=== PATIENT | male | born 1940 | race Caucasian/White ===

== ENCOUNTER 2016-06-08 21:45 | Inpatient (IN) | payer MEDICARE ==
[~2016-06-08] VITALS: Ht 172.7 cm; Wt 84.0 kg
--- NOTE | ~2016-06-08 | HP ---
ADMIT: 06/08/2016 RM/LOC: 311 [facility] MR#: [id number] [address] [address] TAMIKA MARIA V [address] [place] [address] History and Physical SEX: M AGE: 76 : 1940 DATE OF SERVICE: REASON FOR ADMISSION: Fall downstairs, unwitnessed. HISTORY OF PRESENT ILLNESS: This patient is a 76-year-old male, who had an unwitnessed fall down some stairs. Sounds like in visit with paramedics, they found him kind of inverted at the bottom of the stairs with his head down, gurgling. Do not know how long he had been there, how many stairs he had fell down, brought him in, he was unresponsive, bleeding from his mouth, nose. They tried to intubate him, unable to get that done in the field. When he got here, he was intubated by our ER physician. At that time frame then, he coded. CPR was done for 2-3 minutes. Did get one dose of epi. We got a pulse back and since that time has had a tachy, but sinus versus paced rhythm at times. He had a blood pressures that responded adequately. Obvious trauma to his head. No other obvious long bone trauma noted on him. He is completely unresponsive, taken over the CT scanner for CT of the head, chest, C-spine, abdomen and pelvis that shows a depressed skull fracture with significant subarachnoid intraparenchymal areas of blood. No current shift. I do not have final reading, but initial look and read, looking that with the radiologist, no obvious C-spine fracture, there is left clavicle fracture, significant emphysema stuff in the base of his lungs, most likely some aspiration-type stuff from tonight. The rest of his solid organs all appeared okay and no other fluid in his abdomen. I do not have any other significant history on him at this time. He does have a pacer, so obviously some type of heart-type issues and problems. Looks like he has had a total joint on the right. No other history currently is known on him, and he is unresponsive. PHYSICAL EXAMINATION: HEENT: Pupils currently both fixed and dilated. He did get medicines in the field for intubation. Significant bruising around both eyes and left ear. Deformity on the left side of the skull. No significant active bleeding currently. We rolled him back, did not show any obvious step-offs or significant trauma there. CHEST: Coarse bilaterally, anteriorly. ADMIT: 06/08/2016 RM/LOC: 311 [facility] MR#: [id number] [address] [place] [id number] [facility] [address] [place] [address] History and Physical SEX: M AGE: 76 : 1940 HEART: Tachy. ABDOMEN: Soft, nondistended. No obvious mass or lesion. PELVIS: Stable. EXTREMITIES: Like I said, he is currently not been responsive, not moved any of his extremities to pain or anything at this time. NEUROLOGIC: GCS of 3. ASSESSMENT AND PLAN: At this time, I have ER, who is getting hold of Dr. Reyna of neurosurgery to see what he thinks with this overall head trauma that is what appears to be somewhat isolated fall and significant life- threatening head trauma at this point. We will consult Pulmonary to help with vent management, see what Dr. Reyna thinks and wants to do. Currently, no general surgical issues or problems. Bradley Durham MD/ susan JOB #: [id number] CC: Bradley Durham, Attending Physician Ty Mayfield, Family Physician
[~2016-06-08 21:45] MED LIST: ASA CHILDREN'S81 MG PO; CRESTOR20 MG PO; DULCOLAX-DPS5 MG PO; FEOSOL-DPS325 MG PO; GLUCOPHAGE-DPS500 MG PO; LANTUS100 UNITS/ SQ; LEXAPRO DPS10 MG PO; NITROSTAT0.4 MG SL; NORVASC5 MG PO; OMEGA-3 DPS1000 MG PO; OXY IR DPS5 MG PO; PLAVIX75 MG PO; PLETAL100 MG PO; PRILOSEC DPS20 MG PO; SENOKOT S1 TAB PO; TENORMIN DPS50 MG PO; THERA1 EACH PO; TRICOR145 MG PO; TYLENOL DPS325 MG PO; ULTRAM DPS50 MG PO; XARELTO10 MG PO; ZESTRIL DPS20 MG PO; ZETIA10 MG PO
--- NOTE | 2016-06-09 06:52 | ER ---
ADMIT: 06/08/2016 RM/LOC: 311 [facility] MR#: [id number] [address] [address] TAMIKA MARIA V [address] [place] [address] Emergency Room Report SEX: M AGE: 76 : 1940 DATE: 06/08/2016 The patient is a 76-year-old male, came here with a chief complaint of altered mental status. The patient allegedly per partner, he was drinking alcohol and the partner did not witness an incident, but she heard the sound and when she got there, the patient was on the back of the head on the cement floor. It looks like he fell from 6 steps hitting the back of the head on the 7th floor. Per partner, the patient was talking and ambulating without difficulty before that, but when the EMS got there after the incident, the patient was unresponsive and en route, they tried to intubate the patient which was not successful. In the ER, the patient was intubated, and followup exam and also chest x-ray showed the tube is in the right place. In the ER, the patient lost pulses, had cardiac arrest and after 1 round of epinephrine and cardiac massage, he had ROSC. Further examination showed the patient had pupil of 3 mm bilaterally, nonreactive to light and sphincters were normal, knowing that the patient has been given RSI meds en route, but not in the ER. The patient did not move any extremities in the ER, and the eyes were closed and did not talk and did not follow commands and did not move any extremities. A GCS in the ER in the 1st place was 3. The patient had some signs of trauma to the head. There is some bruising in the periorbital area bilaterally, mostly on the left. There is some contusion and some fresh blood in the right scalp in the frontal and right parietal area. There is some contusion and some minor scalp laceration, some bleeding on the left occipital area. There is some blood at the left ear canal, chest bilateral breath sounds with bagging, and normal cardiac sounds and the belly was not distended and the pelvic looks stable. There is no step-offs in the spine, and there is no obvious deformity in the spine. Followup chest x-ray showed the tube is in the right place, and followup CT of the head and neck was suggestive of diffuse subarachnoid hemorrhage, right skull fracture in the right parietal bone, brain contusion without any midline shift and without any epidural hematoma. This was a trauma activation and General Surgery admitted the patient. Neurosurgery was consulted. The patient was allegedly on aspirin and Plavix. In the physical exam, had a pacemaker and EKG also had the pacer, wave captured the ventricles. The patient was admitted by General Surgery with a followup with Neurosurgery on board for traumatic brain injury, subarachnoid hemorrhage, skull fracture, altered mental status. Followup CT angiogram of the head did not show any aneurysm. Critical care time, 90 minutes. Rachid Fuentes MD/ susan JOB #: [id number] CC: Bradley Durham MD, Attending Physician Ty Mayfield MD, Family Physician
--- NOTE | 2016-06-11 13:52 | CO ---
ADMIT: 06/08/2016 RM/LOC: 311 [facility] MR#: [id number] [address] [address] TAMIKA MARIA V [address] [place] [address] Consultation SEX: M AGE: 76 : 1940 DATE OF CONSULTATION: 06/10/2016 ATTENDING PHYSICIAN: Bradley Durham CONSULTING PHYSICIAN: Aracely Robles APRN TIME IN: 11:45 am. TIME OUT: 1305. REASON FOR CONSULTATION: Supportive Care consultation was requested by Dr. Gerber for discussion of goals for care. HISTORY OF PRESENT ILLNESS: Mr. Maria is a 76-year-old male, who unfortunately sustained an unwitnessed fall at his home. He does have a history of coronary artery disease and was on Plavix and aspirin. He was found at the bottom of the stairs of his home, unresponsive. EMS was called and they did attempt intubation in the field, however, they were unable to get him intubated and he was ultimately able to be intubated in the emergency room. He then cardiac coded for approximately 2-3 minutes with compressions and defibrillation. CT scan showed a diffuse subarachnoid hemorrhage with depressed skull fracture. Neurosurgery has been following him as has Pulmonary. He remains in the ICU on the ventilator. He has made slight improvement, but overall remains unresponsive. He will withdraw to pain at times per nursing report. Due to his overall complexities, Supportive Care consultation was requested to discuss goals for care. In terms of advanced directives, the patient does not have any advanced directives. He is a do not resuscitate. In terms of medical decision making, the patient's sister, Lyndsay Monterroso whose phone #[phone], is the patient's next of kin medical decision maker. He does have a significant other, Maribel, who lives with him and has been involved with him for many years. Additionally, he has a cousin named Barry who is present for our discussions, and his phone #[phone]. He does not have a living will or POLST form on file. Symptomatically, he appears comfortable on the vent. He is not demonstrating any signs or symptoms of distress. PAST MEDICAL HISTORY: Depression, diabetes mellitus, coronary artery disease, hypertension, GERD, ankle and foot fusion, peripheral vascular disease, hyperlipidemia, chronic fatigue, COPD, rotator cuff injury, allergic rhinitis, transient ischemic attack, acute ischemic optic neuropathy, placement of cardiac pacemaker. ALLERGIES: THE PATIENT HAS NO KNOWN MEDICATION ALLERGIES. CURRENT MEDICATIONS: Please see the patient's MAR for specific routes and dosages. His medications were reviewed. ADMIT: 06/08/2016 RM/LOC: 311 [facility] MR#: [id number] [address] [place] [id number] [place] [address] Consultation SEX: M AGE: 76 : 1940 SOCIAL HISTORY: He has lived with his significant other for many years. He is a former smoker and occasionally uses alcohol. He was drinking at the time of his injury. FUNCTIONAL REVIEW: Prior to his hospital stay, he was at home. It sounds like he was fairly independent. His palliative performance scale prior to admission was around at 80%. Currently, he is unresponsive on the vent. He is mouth care only. His current palliative performance scale is a 10%. REVIEW OF SYSTEMS: A 10-point review of systems was attempted, however, due the patient's mentation, this is unable to be obtained. PHYSICAL EXAMINATION: GENERAL: The patient is examined in the bed. He is in no acute distress. VITAL SIGNS: Temperature 100.7, pulse 91, respirations 28, blood pressure 118/53, oxygen 100% on the vent at 55% FiO2. HEENT: He has ecchymoses noted over the bilateral orbital areas and skull. Right pupil is 3 mm and fixed. Left pupil is 6 mm and fixed. Oral mucosa is not examined. ET tube is noted. RESPIRATORY: Respirations are equal and nonlabored on the vent. LUNGS: Diminished. CARDIOVASCULAR: Rate and rhythm regular without murmurs, rubs, or gallops. 1+ generalized edema noted. He does have edema over the face from his fall. GASTROINTESTINAL: Soft, nontender. Bowel sounds are positive. GENITOURINARY: Has a López draining yellow urine. MUSCULOSKELETAL: He does not move extremities. He does have the bruising on his skull was noted. INTEGUMENTARY: Skin turgor is fair. NEUROLOGIC: Unresponsive. He will not respond for me at all. I did not do extensive testing of brainstem function as Neurosurgery has completed this assessment earlier in the day. PSYCHIATRIC: Calm. DIAGNOSTIC DATA: Sodium 158, potassium 4.6, BUN 18, creatinine 2.1, total protein 5.5, and albumin 2.6. WBC 7.9, hemoglobin 8.7, hematocrit 26.7, and platelets are 158. IMPRESSION: 1. Debility. 2. Moderate protein-calorie malnutrition. 3. Difficulty coping. 4. Fall with skull fracture and hemorrhage. 5. Coronary artery disease. 6. Palliative care. 7. The patient is a do not resuscitate/do not intubate. PLAN OF TREATMENT: ADMIT: 06/08/2016 RM/LOC: 311 [facility] MR#: [id number] [address] [place] [id number] TAMIKA MARIA [address] [place] [address] Consultation SEX: M AGE: 76 : 1940 1. I was able to meet with the patient's sister as well as the patient's significant other, and cousin outside the room. Obviously, the patient cannot participate in medical decision making. Additionally at the meeting, a friend of the patient's sister was present as was Bibi Woods APRN, with Neurosurgery and the [facility] liability claims representative. We reviewed the patient's overall status. Neurosurgery did give the family an update on the patient's overall status. We reviewed goals for the time ahead and the patient's family states that he would not want to live in this condition and would not want to continue with aggressive care. They are interested in focusing on comfort only. We did discuss the concept of compassionate extubation and comfort cares. They are in full support of proceeding with compassionate extubation and comfort cares with the knowledge that he may or may not decline rapidly. They understand that no matter how long he is with us, we will keep him comfortable and if stable, he can transition out of the hospital with hospice care. They state that quality of life is of the utmost importance at this time. They are interested in donating the patient's body to science and the [facility] liability claims representative is assisting with information regarding this. I have discussed the plans for compassionate extubation with Dr. Gerber and obviously Neurosurgery is on board. Therefore we will proceed with this when family is ready later this afternoon. Orders have been addressed. 2. I did notify detective youth bureau services as the family is requesting a visit. 3. Social Work will continue to follow along and assist with transition out of the hospital with hospice care should he remain stable and be able to do this. 4. We will continue to follow along in the care of this patient and assist with goals as needed. We would like to thank Dr. Gerber for the invitation to participate in this patient's care. Total consultation time was 80 minutes from 1145 hours to 1305 hours with 50 minutes from 1155 hours to 1245 spent [id number] with the patient, the patient's family discussing goals for care and providing counseling and support. We will continue to follow along in the care of this very unfortunate patient. Aracely Robles APRN/ susan JOB #: [id number] CC: Bradley Durham, Attending Physician Bradley Durham, Family Physician
--- NOTE | 2016-06-17 12:58 | CO ---
ADMIT: 06/08/2016 RM/LOC: 311 [facility] MR#: [id number] [address] [facility] [address] [place], [place] [address] TAMIKA MARIA [address] [place], [place] [address] Consultation SEX: M AGE: 76 : 1940 ATTENDING PHYSICIAN: Bradley Durham MD CONSULTING PHYSICIAN: Kar Reyna MD REASON FOR ADMISSION: Fall with massive intracranial hemorrhage. HISTORY OF PRESENT ILLNESS: Mr. Maria is a very pleasant gentleman, whose significant other is here tonight. I have spoken with his sister. There is a daughter, but no one has been able to provide the phone number for her yet as a primary decision maker. He was found down with his legs higher than his head at the bottom of some stairs and brought in as a full code regaining a paced rhythm in the ED. All the information is taken from the prior chart. His significant other says that she is pretty sure that he does not have a POA or Living Will, but does not have any of his medication list or anything on hand. PAST MEDICAL HISTORY: Depression, diabetes mellitus, coronary artery disease, hypertension, GERD, ankle and foot fusion, peripheral vascular disease, hyperlipidemia, chronic fatigue, COPD, rotator cuff injury, allergic rhinitis, transient ischemic attack, acute ischemic optic neuropathy, placement of cardiac pacemaker. SOCIAL HISTORY: He is a former 54-90-fzut-year smoker with occasional alcohol use. MEDICATIONS: His prior medication list which is partially confirmed that his significant other says she does think he is on aspirin and Plavix and maybe was on Xarelto, but does not think he is on that any longer. 1. Plavix. 2. Aspirin. 3. Atenolol. 4. Zetia. 5. Lisinopril. 6. Pletal. 7. Crestor. 8. Norvasc. 9. Lexapro. 10.Lantus. 11.Metformin. 12.Bokeelia-3. 13.Lotrisone. FAMILY HISTORY: Coronary artery disease. PHYSICAL EXAMINATON: VITAL SIGNS: Blood pressure 100/60 on Edgar-Synephrine, pulse 60 to 65 and paced, intubated and ventilated. He got a 100 of rocuronium in the field which was an hour and a half before my most recent exam, but he had 3 twitches on the meter at the time of examination suggesting the rocuronium is mostly out of his system. HEENT: He clearly has had trauma to his head with periorbital contusion ADMIT: 06/08/2016 RM/LOC: 311 [facility] MR#: [id number] [address] [place] [phone] TAMIKA MARIA [address] [place] [address] Consultation SEX: M AGE: 76 : 1940 bilaterally, worse on the left than the right with left-sided hematoma with some blood from his left ear and hematoma involving the pinna. He has other abrasions and bruises throughout his body. LUNGS: Normal respiratory excursions. ABDOMEN: Soft abdomen EXTREMITIES: 2+ radial pulses. NEUROLOGICAL EXAMINATON: His pupils are fixed and dilated. He has no cough, gag or corneal reflex. He has no movement of any kind in all 4 extremities. No signs of brain activity. ASSESSMENT AND PLAN: Mr. Maria is a very pleasant gentleman with an alcohol level of 285. He is on aspirin and Plavix. I am going to give him some platelets. I think this amount of intracranial hemorrhage with what appears to be traumatic subarachnoid hemorrhage with the CTA not showing any sign of aneurysm; His left-sided minimally depressed Skull fracture; is severe with severe poor grade brain injury with no signs of life, although he is intoxicated with an alcohol level of 285. His aspirin and Plavix would preclude placement of any pressure monitors. I think this is likely to be futile in nature as I see no signs of life with the exception of the cardiopulmonary responses, but no sign of brain activity. We will have to await family consideration, although I believe his care to likely be futile at this point. We will put him up in the intensive care unit and see if there is any change to his examination that would portend the possibility of a better outcome. Otherwise, we will await to find his daughter. I have spoken with his sister. I spent 1 hour at bedside, 45 minutes in neurocritical care for the patient, 15 minutes in examination. I attended to him in the CT scanner and spent an additional 30 minutes discussing with family members the severe nature of his issues. EDIT: 06/15/2016 1604 vdg Kar Reyna MD/ susan JOB #: [id number] CC: Bradley Durham MD, Attending Physician Bradley Durham MD, Family Physician
--- NOTE | 2016-06-29 10:05 | DS ---
ADMIT: 06/08/2016 RM/LOC: 311 [facility] MR#: [id number] [address] [address] TAMIKA MARIA Hakan [address] [place] [address] Discharge Summary SEX: M AGE: 76 : 1940 ADMISSION DATE: 06/08/2016 DISCHARGE DATE: 06/10/2016 ADMITTING DIAGNOSES: 1. Subarachnoid hemorrhage. 2. Depressed skull fracture. 3. Status post fall. DISMISSAL DIAGNOSES: 1. Subarachnoid hemorrhage. 2. Depressed skull fracture. 3. Status post trauma, fall. 4. Coronary artery disease. 5. Allergic rhinitis. 6. Constipation. 7. TIA (transient ischemic attack). 8. Previous cardiac pacemaker. 9. Previous total knee replacement. 10.Cardiac arrest with asystole but spontaneously returned to ventilation. 11.Distal comminuted fracture of left clavicle. PROCEDURES: None. HOSPITAL COURSE: Prior to admission, the patient was found unresponsive and was admitted to the ICU through the ER as a code. He arrived by squad. He was placed in the ICU, was put on the vent and was started on a Edgar-Synephrine drip. Pulmonology, neurosurgery and eventually supportive care were consulted. It was noted by [facility] staff that in the past the patient has expressed interest not to be placed on a ventilator and so supportive care was consulted at this time. On hospital day number one, it was noted the patient spiked a fever of 103 and so he was started on IV antibiotics. During this time, family was notified about the patient's condition and they were working on the official plans for comfort cares or not. [facility] was also notified. After long discussion with the family, it was determined that the patient will indeed go comfort cares and so the patient was compassionately extubated on 06/10/2016. He was extubated at 1250 hours and the patient later at 1549 hours. YFN Monk / Bradley Durham MD / yolandeg JOB #: [id number] CC: Bradley Durham MD, Attending Physician Bradley Durham MD, Family Physician
--- NOTE | 2016-07-27 16:03 | CO ---
ADMIT: 06/08/2016 RM/LOC: [facility] MR#: [id number] [address] [address] [address] [place] [address] Consultation SEX: M AGE: 76 : 1940 DATE OF CONSULTATION: 06/09/2016 ATTENDING PHYSICIAN: Bradley Durham CONSULTING PHYSICIAN: Jaren Hurst MD HISTORY OF PRESENT ILLNESS: A 76-year-old, white male, former smoker, quit in 1989, history of coronary artery disease, notably on Plavix and aspirin, and who resides with his girlfriend, and he was found at the bottom of the stairs after a fall. The patient's alcohol level was 238. Nursing staff reported his girlfriend to be significantly intoxicated (was sent home from the hospital). Thus, he was found at the bottom of the stairs. Unknown amount of duration that he was at the bottom of the stairs. EMS reported to have attempted intubation in the field, but the patient was ultimately intubated in the ER, had code performed for 2-3 minutes with compressions and shock x1. The patient was seen in consultation by Neurosurgery (Dr. Reyna) and Critical Care management requested. The patient's CARD CUTTER HELPER called with update and the patient was stable medically. Did ultimately require pressor agents for blood pressure, but he had very significant severe findings of bleeding from the ears, nose, mouth, and eyes. OG also noted to have significant blood. PAST SURGICAL AND PAST MEDICAL HISTORY: Limited but did review with Dr. Mayfield. SURGERY AND OPERATIONS: Cardiac pacemaker, question heart catheterization, total knee replacement. ILLNESSES: Coronary artery disease, allergic rhinitis, intermittent constipation, history of TIA. MEDICATIONS: From chart, 05/27/2015: 1. Plavix. 2. Aspirin. 3. Atenolol. 4. Zetia. 5. Lisinopril. 6. Pletal. 7. Crestor. 8. Norvasc. 9. Lexapro. 10.Lantus. 11.Omeprazole. 12.Metformin. 13.Flonase. 14.[place]-3. ADMIT: 06/08/2016 RM/LOC: [facility] MR#: [id number] [facility] [address] [place], [place] [address] [address] [facility] [address] [place] [address] Consultation SEX: M AGE: 76 : 1940 15.Lotrisone. FAMILY HISTORY: Noncontributory. SOCIAL HISTORY: Resides with girlfriend, has a sister and a daughter who is estranged for more than a year (unknown whereabouts). Alcohol; not known to be alcoholic per Dr. Mayfield. Tobacco; quit 1989. Employment; unknown. REVIEW OF SYSTEMS: Unobtainable; although did review chart as above. PHYSICAL EXAMINATION: GENERAL: Nonresponsive not even to pain at present. VITAL SIGNS: Temp 99.5, pulse 75, respiratory rate 20, blood pressure 99/34, sat is 100% on 65%, vent 450, rate 15+5 PEEP. HEENT: Significant ecchymosis noted, left greater than right. Lacerations over the cranium. Endotracheal and OG in place. NECK: No lymphadenopathy or JVD. HEART: Regular rate and rhythm. LUNGS: Slightly coarse breath sounds. ABDOMEN: Soft, nontender. No definite hepatosplenomegaly. EXTREMITIES: No clubbing, cyanosis, or edema. NEUROLOGIC: Motor and sensory not intact. LABORATORY DATA: ABG 7.2, pCO2 25, PO2 73, 92% sat on 65%, glucose 247, bicarb 17, albumin 2.5, hemoglobin 11.2, alcohol 235, INR 1.23. D-dimer 26. Lactate 8.9. CTA head, subarachnoid hemorrhage, left calvarium, 4-5 mm fracture. ASSESSMENT AND RECOMMENDATION: 1. Status post fall - the patient was significantly intoxicated with alcohol level 235 and had a significant left calvarium fracture along with subarachnoid hemorrhage. The patient is notably on Plavix, aspirin, and has bleeding from nearly every orifice; ears, nose, eyes, mouth, and gastric. The patient has been seen by Neurosurgery and deemed very poor prognosis and comfort care has been recommended and agreed with by the ADMIT: 06/08/2016 RM/LOC: [facility] MR#: [id number] [address] [address] [place] [address] Consultation SEX: M AGE: 76 : 1940 patient's sister, who will be coming to see the patient. The patient has fixed pupils and no pain response. 2. Coronary artery disease. 3. Diabetes. 4. Irritable bowel syndrome. 5. ? chronic alcoholism - not known to Dr. Mayfield. The patient's case was discussed with nursing staff, Dr. Reyna, throughout the evening and in the early a.m. and as well attending. engineer technical staff this a.m. as well as Dr. Mayfield given discussion as well. Total critical care greater than 2 hours. Jaren Hurst MD/ susan JOB #: [id number] CC: Bradley Durham, Attending Physician Bradley Durham, Family Physician
== END 2016-06-10 15:49 | disposition expired | DRG 84 ==
LOC: ER 21:45 → EDBD 21:45 → 3ICU 23:08
PROVIDERS: ADMIT Surgery
PROC: 5A1945Z Respiratory Ventilation, 24-96 Consecutive Hours (ICD-10-PCS; principal; 2016-06-08)
PROC: 0BH17EZ Insertion of Endotracheal Airway into Trachea, Via Natural or Artificial Opening (ICD-10-PCS; principal; 2016-06-08)
DX: I46.9 Cardiac arrest, cause unspecified; J44.9 Chronic obstructive pulmonary disease, unspecified; E11.9 Type 2 diabetes mellitus without complications; Z51.5 Encounter for palliative care; S02.91XA Unspecified fracture of skull, initial encounter for closed fracture; R40.2432 Glasgow coma scale score 3-8, at arrival to emergency department; F32.9 Major depressive disorder, single episode, unspecified; W10.9XXA Fall (on) (from) unspecified stairs and steps, initial encounter; I25.10 Atherosclerotic heart disease of native coronary artery without angina pectoris; I10 Essential (primary) hypertension; Y90.8 Blood alcohol level of 240 mg/100 ml or more; H47.019 Ischemic optic neuropathy, unspecified eye; K21.9 Gastro-esophageal reflux disease without esophagitis; I73.9 Peripheral vascular disease, unspecified; E78.5 Hyperlipidemia, unspecified; R53.82 Chronic fatigue, unspecified; J30.9 Allergic rhinitis, unspecified; Z86.73 Personal history of transient ischemic attack (TIA), and cerebral infarction without residual deficits; Z95.0 Presence of cardiac pacemaker; Z87.891 Personal history of nicotine dependence; Z79.84 Long term (current) use of oral hypoglycemic drugs; Z72.89 Other problems related to lifestyle; Z79.02 Long term (current) use of antithrombotics/antiplatelets; Z96.659 Presence of unspecified artificial knee joint; Z66 Do not resuscitate